=== PATIENT | female | born 1965 | race Caucasian/White ===

== ENCOUNTER 2016-11-01 12:42 | Emergency (ER) | payer OTHER ==
[~2016-11-01] VITALS: Ht 154.9 cm; Wt 117.9 kg
[~2016-11-01 12:42] MED LIST: ALPRAZOLAM0.5 MG PO; AUG500 PO; AZITHROMYCIN250 M1 PO; BACLOFEN10 MG PO; GUAIFENESI100 MG/52 PO; IBUPROFEN400 MG PO; LAC PO; LASIX20 MG PO; LEVOTHYROXINE0.05 M2 PO; LOPRESSOR50 MG PO; NOR10T PO; PROVENTIL0.09 MG/A1 INH; Prednisone PO; XAN5 PO; ZOCOR10 MG PO; ZOLOFT50 MG PO
[2016-11-01 13:17] LABS: BASOPHIL % 1.5 % (0-2); PLATELET COUNT 323 x10^3mcL (130-400); RED CELL DISTRIBUTION WIDTH 13.8 % (11.5-14.5)
[2016-11-01 13:33] LABS: CALCIUM 8.9 mg/dL (8.5-10.1); CARBON DIOXIDE 29.9 mmol/L (21-32); CHLORIDE SERUM 106 mmol/L (98-107); CREATININE SERUM 0.9 mg/dL (0.6-1.0); GFR1 > 60 mL/min; GLUCOSE SERUM 141 mg/dL (74-106); SODIUM SERUM 145 mmol/L (136-145)
[2016-11-01 13:38] LABS: ALBUMIN 3.8 g/dL (3.4-5.0); ALKALINE PHOSPHATASE 83 U/L (46-116); ALT/SGPT 29 U/L (14-59); AST/SGOT 23 U/L (15-37); BILIRUBIN TOTAL 0.6 mg/dL (0.20-1.00); CHOLESTEROL 195 mg/dL (<200); HDL CHOLESTEROL 23 mg/dL (40-60); PHOSPHOROUS 2.6 mg/dL (2.5-4.9); TOTAL PROTEIN, SERUM 7.3 g/dL (6.4-8.2); URIC ACID 5.7 mg/dL (2.6-6.0)
[2016-11-01 14:36] VITALS: BP 139/70
== END 2016-11-01 14:36 | disposition home or self-care (01) ==
LOC: ED 12:42
PROVIDERS: Emergency Medicine
DX: J45.901 Unspecified asthma with (acute) exacerbation (principal); I10 Essential (primary) hypertension; E07.9 Disorder of thyroid, unspecified
CPT/HCPCS: 83880; J7512; Q0092

== ENCOUNTER 2017-01-11 18:09 | Emergency (ER) | payer OTHER ==
[2017-01-11 21:22] VITALS: BP 145/87
== END 2017-01-11 21:22 | disposition home or self-care (01) ==
LOC: ED 18:09
DX: G89.29 Other chronic pain (principal); M54.9 Dorsalgia, unspecified; I10 Essential (primary) hypertension; J44.9 Chronic obstructive pulmonary disease, unspecified; J45.909 Unspecified asthma, uncomplicated
CPT/HCPCS: J1170; J1885; Q0162

== ENCOUNTER 2018-01-09 15:45 | Inpatient (IN) | payer OTHER ==
[~2018-01-09] VITALS: Ht 154.9 cm; Wt 133.0 kg
[2018-01-09 15:51] VITALS: Ht 154.9 cm; Wt 133.0 kg
[2018-01-09 18:01] LABS: microscopic required? NO
[2018-01-09 18:29] LABS: UA SPECIFIC GRAVITY 1.025 (1.005-1.035); urine erythrocyte NEGATIVE (NEGATIVE)
[2018-01-09 18:39] LABS: ALBUMIN 3.7 g/dL (3.4-5.0); ALKALINE PHOSPHATASE 82 U/L (46-116); ALT/SGPT 33 U/L (14-59); AMYLASE 27 U/L (25-115); AST/SGOT 43 U/L (15-37); BILIRUBIN TOTAL 0.4 mg/dL (0.20-1.00); CARBON DIOXIDE 23.7 mmol/L (21-32); CHLORIDE SERUM 103 mmol/L (98-107); CHOLESTEROL 146 mg/dL (<200); GLUCOSE SERUM 131 mg/dL (74-106); LIPASE 126 IU/L (73-393); SODIUM SERUM 140 mmol/L (136-145); TOTAL PROTEIN, SERUM 7.2 g/dL (6.4-8.2)
[2018-01-09 18:44] LABS: HDL CHOLESTEROL 21 mg/dL (40-60); T4(THYROXINE) 1.6 ug/dL (4.7-13.3)
[2018-01-09] MEDS ORDERED: LEVOXYL0.075 MG PO (18:49)
[2018-01-09] MEDS ORDERED: ROBAXIN500 MG PO (18:49)
[2018-01-09] MEDS ORDERED: LASIX20 MG PO (18:50)
[2018-01-09] MEDS ORDERED: TRAMADOL HCL50 MG PO (18:51)
[2018-01-09] MEDS ORDERED: NAPROXEN375 MG PO (18:52)
[2018-01-09] MEDS ORDERED: CLARITIN10 MG PO (18:53)
[2018-01-09] MEDS ORDERED: RANITIDINE HYD150 M2 PO (18:54)
[2018-01-09] MEDS ORDERED: XAN1 PO (18:54)
[2018-01-09 18:55] LABS: BASOPHIL % 0.3 % (0-2); PLATELET COUNT 167 x10^3mcL (130-400)
[2018-01-09 19:01] LABS: RED CELL DISTRIBUTION WIDTH 14.6 % (11.5-14.5)
[2018-01-09 19:02] LABS: CREATININE SERUM 0.7 mg/dL (0.6-1.0); GFR1 > 60 mL/min
[2018-01-09 19:07] LABS: AMPHETAMINE QUAL UR NONE DETECTED (See below)
[2018-01-09 20:03] LABS: MAGNESIUM 1.5 mg/dL (1.8-2.4); PHOSPHOROUS 2.7 mg/dL (2.5-4.9)
[2018-01-09 22:04] VITALS: BP 154/97
[2018-01-10 04:55] VITALS: BP 146/80
[2018-01-10 07:16] LABS: BASOPHIL % 1.2 % (0-2); PLATELET COUNT 272 x10^3mcL (130-400)
[2018-01-10 07:23] LABS: RED CELL DISTRIBUTION WIDTH 14.6 % (11.5-14.5)
[2018-01-10 07:26] LABS: CALCIUM 8.5 mg/dL (8.5-10.1); CARBON DIOXIDE 27.4 mmol/L (21-32); CHLORIDE SERUM 104 mmol/L (98-107); CREATININE SERUM 0.9 mg/dL (0.6-1.0); GFR1 > 60 mL/min; GLUCOSE SERUM 171 mg/dL (74-106); POTASSIUM SERUM 4.1 mmol/L (3.5-5.1); SODIUM SERUM 139 mmol/L (136-145)
[2018-01-10 09:16] VITALS: BP 146/73
[2018-01-10 13:43] VITALS: BP 150/85
[2018-01-10 17:45] VITALS: BP 142/74
[2018-01-10 17:50] VITALS: BP 156/80
[2018-01-10 20:58] VITALS: BP 156/84
[2018-01-11 05:29] VITALS: BP 133/65
[2018-01-11 07:32] LABS: BASOPHIL % 0.5 % (0-2); PLATELET COUNT 299 x10^3mcL (130-400)
[2018-01-11 07:33] LABS: RED CELL DISTRIBUTION WIDTH 14.8 % (11.5-14.5)
[2018-01-11 07:47] LABS: ALBUMIN 3.7 g/dL (3.4-5.0); ALKALINE PHOSPHATASE 70 U/L (46-116); ALT/SGPT 36 U/L (14-59); AST/SGOT 30 U/L (15-37); BILIRUBIN TOTAL 0.22 mg/dL (0.20-1.00); CALCIUM 8.8 mg/dL (8.5-10.1); CARBON DIOXIDE 25.8 mmol/L (21-32); CHLORIDE SERUM 104 mmol/L (98-107); CREATININE SERUM 0.9 mg/dL (0.6-1.0); GFR1 > 60 mL/min; GLUCOSE SERUM 145 mg/dL (74-106); LIPASE 103 IU/L (73-393); MAGNESIUM 2.1 mg/dL (1.8-2.4); PHOSPHOROUS 3.7 mg/dL (2.5-4.9); POTASSIUM SERUM 3.8 mmol/L (3.5-5.1); SODIUM SERUM 142 mmol/L (136-145); TOTAL PROTEIN, SERUM 7.2 g/dL (6.4-8.2)
[2018-01-11 07:53] LABS: AMYLASE 23 U/L (25-115)
[2018-01-11 08:55] VITALS: BP 128/65
[2018-01-11 12:54] VITALS: BP 141/69
[2018-01-11 16:41] VITALS: BP 156/82
[2018-01-11 21:06] VITALS: BP 143/82
[2018-01-12 05:38] VITALS: BP 139/82
[2018-01-12 06:31] LABS: BASOPHIL % 0.3 % (0-2); PLATELET COUNT 290 x10^3mcL (130-400); RED CELL DISTRIBUTION WIDTH 14.3 % (11.5-14.5)
[2018-01-12 06:49] LABS: CALCIUM 8.5 mg/dL (8.5-10.1); CARBON DIOXIDE 28.1 mmol/L (21-32); CHLORIDE SERUM 102 mmol/L (98-107); CREATININE SERUM 0.8 mg/dL (0.6-1.0); GFR1 > 60 mL/min; GLUCOSE SERUM 147 mg/dL (74-106); POTASSIUM SERUM 4.1 mmol/L (3.5-5.1); SODIUM SERUM 138 mmol/L (136-145)
[2018-01-12 09:00] VITALS: BP 153/84
[2018-01-12 12:52] VITALS: BP 104/80
[2018-01-12 16:47] VITALS: BP 146/66
[2018-01-12 20:37] VITALS: BP 177/86
[2018-01-13 05:44] VITALS: BP 176/97
[2018-01-13 06:30] VITALS: BP 151/83
[2018-01-13 06:45] LABS: BASOPHIL % 0.7 % (0-2); PLATELET COUNT 273 x10^3mcL (130-400); RED CELL DISTRIBUTION WIDTH 14.4 % (11.5-14.5)
[2018-01-13 06:52] LABS: CALCIUM 8.9 mg/dL (8.5-10.1); CARBON DIOXIDE 29.1 mmol/L (21-32); CHLORIDE SERUM 99 mmol/L (98-107); CREATININE SERUM 0.8 mg/dL (0.6-1.0); GFR1 > 60 mL/min; GLUCOSE SERUM 138 mg/dL (74-106); POTASSIUM SERUM 4.2 mmol/L (3.5-5.1); SODIUM SERUM 137 mmol/L (136-145)
[2018-01-13 09:00] VITALS: BP 143/87
[2018-01-13] MEDS ORDERED: MONTELUKAST SOD10 M1 PO (11:14)
[2018-01-13] MEDS ORDERED: ADV100/50 INH (11:14)
[2018-01-13] MEDS ORDERED: MEDROL4 MG PO (11:15)
[2018-01-13] MEDS ORDERED: ATIVAN1 MG PO (11:15)
[2018-01-13 12:05] VITALS: BP 143/87
[2018-01-13 14:00] VITALS: BP 146/82
== END 2018-01-13 14:40 | disposition home or self-care (01) | DRG 140 ==
LOC: ED 15:45 → DU 19:39
PROVIDERS: Emergency Medicine; Family Medicine
DX: J44.1 Chronic obstructive pulmonary disease with (acute) exacerbation (principal); J96.01 Acute respiratory failure with hypoxia; E66.01 Morbid (severe) obesity due to excess calories; E83.42 Hypomagnesemia; I10 Essential (primary) hypertension; E03.9 Hypothyroidism, unspecified; G47.33 Obstructive sleep apnea (adult) (pediatric); M79.7 Fibromyalgia; F41.9 Anxiety disorder, unspecified; K21.9 Gastro-esophageal reflux disease without esophagitis; F19.10 Other psychoactive substance abuse, uncomplicated; F17.210 Nicotine dependence, cigarettes, uncomplicated; Z68.43 Body mass index [BMI] 50.0-59.9, adult; Z91.19 Patient's noncompliance with other medical treatment and regimen; Z90.49 Acquired absence of other specified parts of digestive tract; Z98.891 History of uterine scar from previous surgery; I25.2 Old myocardial infarction; Z83.3 Family history of diabetes mellitus; Z80.9 Family history of malignant neoplasm, unspecified
CPT/HCPCS: 83880; 97110-GP; 97116-GP; 97530-GP; 97535-GP; 99406; J1644; J1885; J1956; J2920; J2930; J3475; J3535; J7030; J7613; J7620; J7626; Q0092

== ENCOUNTER 2018-05-08 13:36 | Inpatient (IN) | payer OTHER ==
[~2018-05-08] VITALS: Ht 154.9 cm; Wt 130.8 kg
[~2018-05-08 13:36] MED LIST changes: +ADV100/50 INH; +ATIVAN1 MG PO; +CLARITIN10 MG PO; +LEVOXYL0.075 MG PO; +MEDROL4 MG PO; +MONTELUKAST SOD10 M1 PO; +NAPROXEN375 MG PO; +RANITIDINE HYD150 M2 PO; +ROBAXIN500 MG PO; +TRAMADOL HCL50 MG PO; +XAN1 PO
[2018-05-08 13:44] VITALS: Ht 154.9 cm; Wt 130.8 kg
[2018-05-08 14:31] LABS: PLATELET COUNT 296 x10^3mcL (130-400); RED CELL DISTRIBUTION WIDTH 14.4 % (11.5-14.5)
[2018-05-08 14:53] LABS: CALCIUM 8.2 mg/dL (8.5-10.1); CARBON DIOXIDE 32.5 mmol/L (21-32); CHLORIDE SERUM 102 mmol/L (98-107); CREATININE SERUM 0.9 mg/dL (0.6-1.0); GFR1 > 60 mL/min; GLUCOSE SERUM 126 mg/dL (74-106); POTASSIUM SERUM 4.6 mmol/L (3.5-5.1); SODIUM SERUM 140 mmol/L (136-145)
[2018-05-08 14:58] LABS: ALBUMIN 3.6 g/dL (3.4-5.0); ALKALINE PHOSPHATASE 116 U/L (46-116); ALT/SGPT 40 U/L (14-59); AST/SGOT 39 U/L (15-37); BILIRUBIN TOTAL 0.3 mg/dL (0.20-1.00); CHOLESTEROL 167 mg/dL (<200); PHOSPHOROUS 5.2 mg/dL (2.5-4.9)
[2018-05-08 15:00] LABS: HDL CHOLESTEROL 16 mg/dL (40-60)
[2018-05-08 15:11] LABS: BAND NEUTROPHIL 12 % (0-10); BASOPHIL 0 % (0-2); METAMYELOCTE 1 % (0-2); MONOCYTE 3 % (0-7); SEGMENTED NEUTROPHILS 69 % (37-75)
[2018-05-08 15:12] LABS: PLATELET MORPHOLOGY PLATELETS NORMAL; rbc morphology (normal/abnorm) NORMAL (NORMAL)
[2018-05-08] MEDS ORDERED: CEPHALEXIN500 MG PO (17:12)
[2018-05-08] MEDS ORDERED: GABAPENTIN600 M1 PO (17:12)
[2018-05-08] MEDS ORDERED: CLARITIN10 MG PO (17:13)
[2018-05-08] MEDS ORDERED: NAPROXEN375 MG PO (17:14)
[2018-05-08] MEDS ORDERED: VITAMIN D50000 I4 PO (17:16)
[2018-05-08 17:49] LABS: CHOLESTEROL/HDL RATIO 7.8
[2018-05-08] MEDS ORDERED: ULTRAM50 MG PO (18:09)
[2018-05-08 18:22] VITALS: BP 143/85
[2018-05-08] MEDS ORDERED: NORCO1 TA2 PO (18:26)
[2018-05-08 20:51] VITALS: BP 132/95
[2018-05-08 21:19] LABS: T3 TOTAL 1.2 ng/mL
[2018-05-08 21:20] LABS: FREE T4 1.05 ng/dL (0.76-1.46); T4(THYROXINE) 8.5 ug/dL (4.7-13.3)
[2018-05-09 02:54] LABS: UA SPECIFIC GRAVITY >=1.030 (1.005-1.035); microscopic required? YES; urine erythrocyte NEGATIVE (NEGATIVE)
[2018-05-09 03:06] LABS: AMPHETAMINE QUAL UR NONE DETECTED (See below)
[2018-05-09 04:25] VITALS: BP 150/82
[2018-05-09 08:12] VITALS: BP 145/86
[2018-05-09 08:21] LABS: CALCIUM 8.2 mg/dL (8.5-10.1); CARBON DIOXIDE 32.9 mmol/L (21-32); CHLORIDE SERUM 103 mmol/L (98-107); CREATININE SERUM 0.8 mg/dL (0.6-1.0); GFR1 > 60 mL/min; GLUCOSE SERUM 121 mg/dL (74-106); PHOSPHOROUS 3.1 mg/dL (2.5-4.9); POTASSIUM SERUM 4.1 mmol/L (3.5-5.1); SODIUM SERUM 139 mmol/L (136-145)
[2018-05-09 08:22] LABS: BASOPHIL % 1.2 % (0-2); PLATELET COUNT 258 x10^3mcL (130-400); RED CELL DISTRIBUTION WIDTH 14.4 % (11.5-14.5)
[2018-05-09 12:41] VITALS: BP 133/71
[2018-05-09 16:30] VITALS: BP 133/80
[2018-05-09 20:58] VITALS: BP 148/68
[2018-05-10 05:30] VITALS: BP 136/62
[2018-05-10 07:16] LABS: BASOPHIL % 1.3 % (0-2); PLATELET COUNT 268 x10^3mcL (130-400); RED CELL DISTRIBUTION WIDTH 14.1 % (11.5-14.5)
[2018-05-10 07:34] LABS: CALCIUM 8.9 mg/dL (8.5-10.1); CARBON DIOXIDE 30.4 mmol/L (21-32); CHLORIDE SERUM 103 mmol/L (98-107); CREATININE SERUM 0.7 mg/dL (0.6-1.0); GFR1 > 60 mL/min; GLUCOSE SERUM 148 mg/dL (74-106); MAGNESIUM 2.1 mg/dL (1.8-2.4); PHOSPHOROUS 2.6 mg/dL (2.5-4.9); POTASSIUM SERUM 3.9 mmol/L (3.5-5.1); SODIUM SERUM 140 mmol/L (136-145)
[2018-05-10 07:50] VITALS: BP 116/88; BP 128/92
[2018-05-10 08:30] VITALS: BP 128/92
[2018-05-10] MEDS ORDERED: AUGMENTIN 875-1 EACH PO (12:19)
[2018-05-10] MEDS ORDERED: ADA30 PO (12:19)
[2018-05-10] MEDS ORDERED: PREDNISONE20 MG PO ×2 (12:19→12:20)
[2018-05-10] MEDS ORDERED: PREDNISONE10 MG PO (12:20)
[2018-05-10] MEDS ORDERED: LEVOFLOXACIN750 M1 PO (12:21)
== END 2018-05-10 12:53 | disposition home or self-care (01) | DRG 812 ==
LOC: ED 13:36 → MU 16:35 → DU 16:35 → MU 18:05 → DU 18:15
PROVIDERS: Emergency Medicine; Family Medicine
PROC: 5A09357 Assistance with Respiratory Ventilation, Less than 24 Consecutive Hours, Continuous Positive Airway Pressure (ICD-10-PCS; principal; 2018-05-10)
DX: T40.7X4A Poisoning by cannabis (derivatives), undetermined, initial encounter (principal); J96.01 Acute respiratory failure with hypoxia; G92 Toxic encephalopathy; E66.01 Morbid (severe) obesity due to excess calories; E83.42 Hypomagnesemia; M79.7 Fibromyalgia; I10 Essential (primary) hypertension; E03.9 Hypothyroidism, unspecified; K21.9 Gastro-esophageal reflux disease without esophagitis; G47.33 Obstructive sleep apnea (adult) (pediatric); K02.9 Dental caries, unspecified; F17.210 Nicotine dependence, cigarettes, uncomplicated; F10.10 Alcohol abuse, uncomplicated; Y90.0 Blood alcohol level of less than 20 mg/100 ml; G89.29 Other chronic pain; F32.9 Major depressive disorder, single episode, unspecified; J44.1 Chronic obstructive pulmonary disease with (acute) exacerbation; T38.0X5A Adverse effect of glucocorticoids and synthetic analogues, initial encounter; Z71.6 Tobacco abuse counseling; I25.2 Old myocardial infarction; Z68.43 Body mass index [BMI] 50.0-59.9, adult; Z90.49 Acquired absence of other specified parts of digestive tract; Z83.3 Family history of diabetes mellitus; Z80.9 Family history of malignant neoplasm, unspecified; Y92.89 Other specified places as the place of occurrence of the external cause; Z23 Encounter for immunization
CPT/HCPCS: 36600; 82375; 83880; 84439; 90658; 99406; G0480; J1644; J1956; J2060; J2270; J2920; J2930; J7030; J7040; J7613; J7620; Q0092

== ENCOUNTER 2018-08-02 15:09 | Inpatient (IN) | payer OTHER ==
[~2018-08-02] VITALS: Ht 154.9 cm; Wt 127.0 kg
[~2018-08-02 15:09] MED LIST changes: +ADA30 PO; +AUGMENTIN 875-1 EACH PO; +CEPHALEXIN500 MG PO; +GABAPENTIN600 M1 PO; +LEVOFLOXACIN750 M1 PO; +NORCO1 TA2 PO; +PREDNISONE10 MG PO; +PREDNISONE20 MG PO; +ULTRAM50 MG PO; +VITAMIN D50000 I4 PO
[2018-08-02 15:30] VITALS: Ht 154.9 cm; Wt 127.0 kg
[2018-08-02 16:38] LABS: BASOPHIL % 0.2 % (0-2); PLATELET COUNT 278 x10^3mcL (130-400)
[2018-08-02 16:41] LABS: RED CELL DISTRIBUTION WIDTH 15.4 % (11.5-14.5)
[2018-08-02 16:46] LABS: AMPHETAMINE QUAL UR NONE DETECTED (See below)
[2018-08-02 16:46] LABS: CALCIUM 8.4 mg/dL (8.5-10.1); CARBON DIOXIDE 29.3 mmol/L (21-32); CHLORIDE SERUM 102 mmol/L (98-107); CREATININE SERUM 1.2 mg/dL (0.6-1.0); GFR1 51 mL/min; GLUCOSE SERUM 126 mg/dL (74-106); POTASSIUM SERUM 4.6 mmol/L (3.5-5.1); SODIUM SERUM 139 mmol/L (136-145)
[2018-08-02 16:51] LABS: ALBUMIN 4.1 g/dL (3.4-5.0); ALKALINE PHOSPHATASE 92 U/L (46-116); ALT/SGPT 32 U/L (14-59); AST/SGOT 31 U/L (15-37); BILIRUBIN TOTAL 0.46 mg/dL (0.20-1.00); CHOLESTEROL 164 mg/dL (<200); TOTAL PROTEIN, SERUM 7.7 g/dL (6.4-8.2)
[2018-08-02] MEDS ORDERED: CELEXA10 MG (18:01)
[2018-08-02] MEDS ORDERED: KLONOPIN1 MG PO (18:02)
[2018-08-02] MEDS ORDERED: RANITIDINE HCL150 M1 (18:02)
[2018-08-02] MEDS ORDERED: REQUIP0.5 MG (18:06)
[2018-08-02] MEDS ORDERED: ROBAXIN500 MG (18:07)
[2018-08-02] MEDS ORDERED: NOR10T (18:08)
[2018-08-02] MEDS ORDERED: SIMVASTATIN10 M1 (18:08)
[2018-08-02] MEDS ORDERED: METOPROLOL SUCC50 M2 (18:08)
[2018-08-02 18:58] LABS: MAGNESIUM 1.9 mg/dL (1.8-2.4); PHOSPHOROUS 5.3 mg/dL (2.5-4.9)
[2018-08-02 19:03] LABS: CHOLESTEROL/HDL RATIO 7.6
[2018-08-02 19:04] LABS: FREE T4 0.96 ng/dL (0.76-1.46); FREE THYROXINE INDEX 2.8 ug/dL (1.4-4.5); T4(THYROXINE) 9.2 ug/dL (4.7-13.3)
[2018-08-02 19:05] LABS: T3 TOTAL 1.33 ng/mL
[2018-08-02 20:39] VITALS: BP 146/68
[2018-08-03 05:30] VITALS: BP 149/77
[2018-08-03 06:41] LABS: PLATELET COUNT 261 x10^3mcL (130-400); RED CELL DISTRIBUTION WIDTH 15.6 % (11.5-14.5)
[2018-08-03 06:59] LABS: CALCIUM 8.4 mg/dL (8.5-10.1); CARBON DIOXIDE 28.5 mmol/L (21-32); CHLORIDE SERUM 102 mmol/L (98-107); CREATININE SERUM 0.9 mg/dL (0.6-1.0); GFR1 > 60 mL/min; GLUCOSE SERUM 166 mg/dL (74-106); MAGNESIUM 1.8 mg/dL (1.8-2.4); PHOSPHOROUS 2.2 mg/dL (2.5-4.9); POTASSIUM SERUM 4.1 mmol/L (3.5-5.1); SODIUM SERUM 138 mmol/L (136-145)
[2018-08-03 07:49] VITALS: BP 116/46
[2018-08-03 09:23] LABS: microscopic required? YES; urine erythrocyte TRACE (NEGATIVE)
[2018-08-03 18:00] VITALS: BP 125/57
[2018-08-03 20:39] VITALS: BP 117/49
[2018-08-04 05:54] VITALS: BP 121/49
[2018-08-04 06:54] LABS: BASOPHIL % 0.1 % (0-2); PLATELET COUNT 302 x10^3mcL (130-400)
[2018-08-04 06:58] LABS: RED CELL DISTRIBUTION WIDTH 15.1 % (11.5-14.5)
[2018-08-04 07:29] LABS: CALCIUM 8.8 mg/dL (8.5-10.1); CARBON DIOXIDE 28.3 mmol/L (21-32); CHLORIDE SERUM 103 mmol/L (98-107); CREATININE SERUM 0.8 mg/dL (0.6-1.0); GFR1 > 60 mL/min; GLUCOSE SERUM 176 mg/dL (74-106); PHOSPHOROUS 2.6 mg/dL (2.5-4.9); POTASSIUM SERUM 3.8 mmol/L (3.5-5.1); SODIUM SERUM 141 mmol/L (136-145)
[2018-08-04 08:51] VITALS: BP 128/65
[2018-08-04 08:53] VITALS: BP 128/65
[2018-08-04] MEDS ORDERED: PRE20 PO (10:26)
[2018-08-04 11:20] VITALS: BP 128/65
== END 2018-08-04 14:35 | disposition home or self-care (01) | DRG 812 ==
LOC: ED 15:09 → DU 17:49
PROVIDERS: Emergency Medicine; ADMIT Family Medicine
DX: T42.4X1A Poisoning by benzodiazepines, accidental (unintentional), initial encounter (principal); J96.21 Acute and chronic respiratory failure with hypoxia; N17.0 Acute kidney failure with tubular necrosis; G92 Toxic encephalopathy; T40.601A Poisoning by unspecified narcotics, accidental (unintentional), initial encounter; T47.8X1A Poisoning by other agents primarily affecting gastrointestinal system, accidental (unintentional), initial encounter; Y92.89 Other specified places as the place of occurrence of the external cause; E66.2 Morbid (severe) obesity with alveolar hypoventilation; E83.51 Hypocalcemia; F41.9 Anxiety disorder, unspecified; K21.9 Gastro-esophageal reflux disease without esophagitis; M79.7 Fibromyalgia; J96.22 Acute and chronic respiratory failure with hypercapnia; E78.1 Pure hyperglyceridemia; F32.9 Major depressive disorder, single episode, unspecified; F17.210 Nicotine dependence, cigarettes, uncomplicated; J44.1 Chronic obstructive pulmonary disease with (acute) exacerbation; E83.39 Other disorders of phosphorus metabolism; I10 Essential (primary) hypertension; I25.2 Old myocardial infarction; Z90.49 Acquired absence of other specified parts of digestive tract; Z98.891 History of uterine scar from previous surgery; Z83.3 Family history of diabetes mellitus; Z80.9 Family history of malignant neoplasm, unspecified; Z68.43 Body mass index [BMI] 50.0-59.9, adult
CPT/HCPCS: 36600; 83880; 84439; 87804; C9113; G0480; J1885; J1956; J2310; J2920; J3490; J7050; J7620; Q0092

== ENCOUNTER 2019-06-09 22:52 | Inpatient (IN) | payer OTHER ==
[~2019-06-09] VITALS: Ht 154.9 cm; Wt 122.6 kg
[~2019-06-09 22:52] MED LIST changes: +CELEXA10 MG PO; +KLONOPIN1 MG PO; +METOPROLOL SUCC50 M2; +NOR10T; +PRE20 PO; +RANITIDINE HCL150 M1; +REQUIP0.5 MG; +SIMVASTATIN10 M1
[2019-06-09 23:02] VITALS: Ht 154.9 cm; Wt 122.6 kg
--- NOTE | 2019-06-09 23:09 | NUR ---
PT CAME TO ED CO SOB PT STS SHE HAS RAN OUT OF ANXIETY MEDICATION THE LAST 5 DAYS. PT STS SHE HAS HAD SEVERAL ANNIVERSERY OF MANY OF HER FAMILY MEMBERS . PT STS SHE FAMILY MEMBERS IN THE HOUSE ARE SICK. PT STS SHE HAS INCREASED HER SMOKING BECAUSE OF HER STRESS. PT IS DIMINISHED BILATERALLY. PT WAS GIVEN NITRO IN ROUTE. PT DOES USE IN HOME BREATHING TREATMENTS, LAST TREATMENT WAS THIS MORNING, PT STS SHE DOESN'T THINK ITS WORKING CORRECTLY. PT STS SHE IS FEELING MUCH BE THAN BEFORE SHE CAME IN. PT TALKING IN COMPLETE SENTENCES. VSS. NO S/S OF DISTRESS. RESP E/U. DR. MORFIN COMPLETED MSE. WILL CONTINUE TO MONITOR.
[2019-06-09 23:36] LABS: BASOPHIL % 1.2 % (0-2); PLATELET COUNT 247 x10^3mcL (130-400); RED CELL DISTRIBUTION WIDTH 14.1 % (11.5-14.5)
--- NOTE | 2019-06-09 23:40 | NUR ---
ATTEMPTED ABG WITHOUT SUCCESS. DR MORFIN MADE AWARE.
[2019-06-09 23:47] LABS: CALCIUM 8.9 mg/dL (8.5-10.1); CARBON DIOXIDE 27.1 mmol/L (21-32); CHLORIDE SERUM 103 mmol/L (98-107); CREATININE SERUM 0.8 mg/dL (0.6-1.0); GFR1 > 60 mL/min; GLUCOSE SERUM 115 mg/dL (74-106); POTASSIUM SERUM 3.3 mmol/L (3.5-5.1); SODIUM SERUM 141 mmol/L (136-145)
[2019-06-10] VITALS (8 sets, daily range): BP systolic 122–150; BP diastolic 49–78
[2019-06-10 00:07] LABS: ALBUMIN 4.1 g/dL (3.4-5.0); ALKALINE PHOSPHATASE 73 U/L (46-116); ALT/SGPT 33 U/L (14-59); AST/SGOT 28 U/L (15-37); BILIRUBIN TOTAL 0.5 mg/dL (0.20-1.00); TOTAL PROTEIN, SERUM 7.4 g/dL (6.4-8.2)
--- NOTE | 2019-06-10 00:14 | NUR ---
PT STS SHE IS CURRENTLY FEELING PRESSURE PAIN AT THIS TIME. BLOOD PRESSURE SLIGHTLY INCREASE. DR. MORFIN MADE AWARE.
--- NOTE | 2019-06-10 00:44 | NUR ---
RESP AT BEDSIDE.
--- NOTE | 2019-06-10 00:56 | NUR ---
REASSESSED PT, STS THAT AFTER BREATHING TREATMENT SHE IS NO LONG FEELING CHEST TIGHTNESS. WILL CONTINUE TO MONITOR.
[2019-06-10] MEDS ORDERED: LEXAPRO20 MG PO (02:02)
[2019-06-10] MEDS ORDERED: FERROUS SULFAT325 M2 PO (02:02)
[2019-06-10] MEDS ORDERED: NOR10 PO (02:02)
[2019-06-10] MEDS ORDERED: PRAVACHOL20 MG PO (02:03)
[2019-06-10] MEDS ORDERED: K10 PO (02:03)
--- NOTE | 2019-06-10 02:21 | NUR ---
REPORT GIVEN TO BELLA WOLF TO ASSUME CARE OF PT.
--- NOTE | 2019-06-10 02:48 | NUR ---
PT RECEIVED FROM ED VIA GURNEY ACCOMPANIED BY NURSE. PT A/O X4, ABLE TO MAKE NEEDS KNOWN, DENIES ANY H/A OR DIZZINESS. TELE #30, NSR, HR-86, PT DENIES HAVING ANY CP/PRESSURE. PULSES PALPABLE, TRACE EDEMA TO BLE. LUNG SOUNDS DIM TO [place]OL[place] BASES, BREATHING IS EVEN AND UNLABORED ON 2L NC, PT DENIES SOB, NO RESP DISTRESS NOTED. ABD SOFT AND ROUND, DENIES N/V. VOIDS FREELY, BRP. AMBULATORY WITH STEADY GAIT, PT REPORTS USING WALKER AT BASELINE. SKIN IS WARM AND DRY, INTACT. PT DENIES HAVING ANY PAIN AT THIS TIME. SL TO RH, PATENT AND INTACT. NO ACUTE DISTRESS NOTED. ORIENTED PT TO CALL LIGHT. BED IN LOWEST SETTING, SIDE RAILS UP X2, CALL LIGHT WITHIN REACH. WILL CONT TO MONITOR.
--- NOTE | 2019-06-10 02:58 | NUR ---
PT TRANSFERRED TO TELE FLOOR ACCOMPANIED BY NURSE AND EMT. NO S/S OF DISTRESS. RESP E/U. PT CONNECTED TO MONITOR. DURING TRANSFER. IV SITE PATENT, NO S/S OF INFILTRATION. RN AT BEDSIDE TO ASSUME CARE.
--- NOTE | 2019-06-10 04:10 | NUR ---
ELLIS CHIN CALLED AND DR ELLIOTT PAGED FOR ORDERS. CALLBACK NUMBER LEFT WITH LOKIE DRIVER. AWAITING CALLBACK AT THIS TIME.
--- NOTE | 2019-06-10 04:37 | NUR ---
CALLED [facility] FOR ORDERS. SPOKE WITH DR ELLIOTT AND UPDATED PHYSICIAN WITH PT'S STATUS. PT C/O 01/08 CP, DR ELLIOTT AWARE. PT ALSO REQUESTING ANXIETY MEDICATION, PER DR ELLIOTT, NO ANXIETY MED AT THIS TIME D/T PT COMING IN FOR COPD EXACERBATION. ORDERS RECEIVED, WILL CARRY OUT ORDERS.
--- NOTE | 2019-06-10 04:58 | NUR ---
PT C/O 7/10 CP, PRN TORADOL IVP GIVEN ORDERED. NO ACUTE DISTRESS NOTED. WILL CONT TO MONITOR.
--- NOTE | 2019-06-10 06:31 | NUR ---
PT SLEPT AT INTERVALS THROUGHOUT THE EVENING. BREATHING IS EVEN AND UNLABORED ON 2L NC, NO RESP DISTRESS NOTED. PT REPORTS GOOD PAIN RELEIF FROM PRN TORADOL. SL TO RH, INTACT. NO ACUTE CHANGES ENCOUNTERED DURING SHIFT. ALL NEEDS MET AND ANTICIPATED. CALL LIGHT WITHIN REACH. WILL ENDORSE CARE TO AM NURSE.
[2019-06-10 06:41] LABS: BASOPHIL % 0.5 % (0-2); PLATELET COUNT 242 x10^3mcL (130-400); RED CELL DISTRIBUTION WIDTH 13.9 % (11.5-14.5)
[2019-06-10 06:45] LABS: CALCIUM 9.1 mg/dL (8.5-10.1); CARBON DIOXIDE 24.2 mmol/L (21-32); CHLORIDE SERUM 100 mmol/L (98-107); CREATININE SERUM 0.9 mg/dL (0.6-1.0); GFR1 > 60 mL/min; GLUCOSE SERUM 152 mg/dL (74-106); POTASSIUM SERUM 3.9 mmol/L (3.5-5.1); SODIUM SERUM 136 mmol/L (136-145)
--- NOTE | 2019-06-10 07:25 | NUR ---
SEEN AOX4, NOT IN DISTRESS, NO SUBJECTIVE COMPLAINTS, TELE 30 NSR, PALPABLE PULSES, TRACE BLE, DIMINISHED LUNG BASES, O2 AT 2LPM VIA NC, + BS, LAST BM 06/09/19, VOIDS WITH NO DYSURIA, GENERALIZED WEAKNESS, SKIN INTACT, AMBULATORY, NO PAIN AT THIS TIME. CALL LIGHT WITHIN REACH . BED AT LOWEST POSITION.
--- NOTE | 2019-06-10 10:16 | NUR ---
PATIENT COMPLAINED OF PAIN ON IV RH DURING FLUSHING. IV DISCONTINUED. IV RESTARTED AT . NO REDNESS OR INFILTRATION. IV INTACT AND PATENT. RESTARTED IVPB MEDICATION, AZITHROMAX. CALL LIGHT WITHIN REACH. BED AT LOWEST POSITION.
--- NOTE | 2019-06-10 10:30 | NUR ---
PATIENT STILL COMPLAINED OF PAIN AT RH IV SITE ASSOCIATED WITH BURNING SENSATION. IV STOPPED AND DISCONNECTED. PAGED DR. SHIELDS.
--- NOTE | 2019-06-10 11:12 | NUR ---
RECEIVED CALL FROM DR SHIELDS. REPORTED AZITHROMYCIN IVPB REACTION. PATIENT VERBALIZED NO REACTION TO PO MEDICATION. PER DR. SHIELDS, CHANGE TO PO MEDICATION. PER DR. MURRIETA PATIENT TO START ANTIHYPERTENSIVE MEDICATION FROM HER HOME MEDICATION.
[2019-06-10] MEDS ORDERED: METOPROLOL TART50 MG PO (12:22)
--- NOTE | 2019-06-10 17:17 | NUR ---
SEEN AOX4, C/O RETROORBITAL PAIN AND NECK PAIN. BP 133/78. TORADOL IVP GIVEN. PAIN SCALE OF 8/10. O2 AT 2 LPM VIA NC. TELE 30 NSR 87. DIMINISHED BLF, REGULAR RATE AND RHYTHM, TRACE BLE. NO ABDOMINAL COMPLAINTS. VOIDED 2X WITH NO DYSURIA, LAST BM 06/10/19. IV INTACT AND PATENT . NO REDNESS OR INFILTRATION. CALL LIGHT WITHIN REACH. BED AT LOWEST POSITION.
--- NOTE | 2019-06-10 19:20 | NUR ---
PT RECEIVED A/O X4, ABLE TO MAKE NEEDS KNOWN. TELE #30, NSR, PT DENIES HAVING ANY CP/PRESSURE. PULSES PALPABLE, TRACE EDEMA TO BLE. LUNG SOUNDS DIM TO KOLTON BASES, BREATHING IS EVEN AND UNLABORED ON 2L NC, PT DENIES SOB, NO RESP DISTRESS NOTED. ABD SOFT AND ROUND, DENIES N/V. VOIDS FREELY, BRP. AMBULATORY WITH STEADY GAIT, PT USES WALKER AT BASELINE. SKIN IS WARM AND DRY, INTACT. PT DENIES HAVING ANY PAIN AT THIS TIME. SL TO RH, PATENT AND INTACT. NO ACUTE DISTRESS NOTED. ORIENTED PT TO CALL LIGHT. BED IN LOWEST SETTING, SIDE RAILS UP X2, CALL LIGHT WITHIN REACH. WILL CONT TO MONITOR.
--- NOTE | 2019-06-10 19:35 | NUR ---
DR SHIELDS AT BEDSIDE DISCUSSING PLAN OF CARE WITH PT. ORDERS RECEIVED. PER DR SHIELDS, PT DOES NOT NEED 02 NC. PT PLACED ON NC, 02 SAT-96% ON RA, NO RESP DISTRESS NOTED. WILL CONT TO MONITOR.
--- NOTE | 2019-06-10 21:47 | NUR ---
PT C/O 5/10 BACK PAIN, PRN TYLENOL GIVEN ORDERED. NO ACUTE DISTRESS NOTED. WILL CONT TO MONITOR.
--- NOTE | 2019-06-10 22:51 | NUR ---
PT C/O 01/08 BACK PAIN, PRN TORADOL GIVEN ORDERED. NO ACUTE DISTRESS NOTED. WILL CONT TO MONITOR.
--- NOTE | 2019-06-11 01:53 | NUR ---
PT C/O FEELING ANXIOUS. PT STATES, "THIS IS AROUND THE SAME TIME A LOT OF MY FAMILY MEMBERS PASSED." PRN XANAX GIVEN ORDERED. NO ACUTE DISTRESS OBSERVED. WILL CONT TO MONITOR.
[2019-06-11 05:17] VITALS: BP 146/68
--- NOTE | 2019-06-11 08:00 | NUR ---
SHIFT ASSESSMENT DONE. PATIENT A/A/OX4; CLEAR SPEECH. TELE#30; SR; HR =82. NO RESP DISTRESS, O2 SAT 96% ON RA. IVHL'D TO L HAND. FINISHED 80% OF REGULAR DIET BREAKFAST. NO N/V. OBESITY. STATED HAD WALKER AT HOME. C/O RT CHEST PAIN ON 11/08 AND ANXIETY. TORADOL AND ANTI- ANXIETY MEDS WOULD BE GIVEN PER ORDER. CALL LIGHT IN REACH.
[2019-06-11 08:41] VITALS: BP 131/74
[2019-06-11 12:05] VITALS: BP 131/74
[2019-06-11 13:10] VITALS: BP 146/77
--- NOTE | 2019-06-11 14:00 | NUR ---
DR. SHIELDS SAW PATIENT. D/C TO HOME PER ORDER. INSTRUCTION GIVEN. IV D/C'D. CONDITION STABLE.
== END 2019-06-11 14:20 | disposition home or self-care (01) | DRG 140 ==
LOC: ED 22:52 → DU 06-10 01:49
PROVIDERS: Emergency Medicine; ADMIT Internal Medicine
DX: J44.1 Chronic obstructive pulmonary disease with (acute) exacerbation (principal); E66.01 Morbid (severe) obesity due to excess calories; F17.210 Nicotine dependence, cigarettes, uncomplicated; K21.9 Gastro-esophageal reflux disease without esophagitis; M79.7 Fibromyalgia; K58.9 Irritable bowel syndrome, unspecified; Z68.32 Body mass index [BMI] 32.0-32.9, adult; Z71.3 Dietary counseling and surveillance; F41.9 Anxiety disorder, unspecified; I25.2 Old myocardial infarction; Z90.49 Acquired absence of other specified parts of digestive tract; E78.5 Hyperlipidemia, unspecified; E03.9 Hypothyroidism, unspecified; M54.9 Dorsalgia, unspecified; G89.29 Other chronic pain
CPT/HCPCS: 83880; 99406; G0378; J0456; J1650; J1885; J2920; J2930; J7030; J7512; J7613; J7620; J7626; Q0092

== ENCOUNTER 2020-08-02 17:01 | Inpatient (IN) | payer OTHER, SELFPAY ==
[~2020-08-02] VITALS: Ht 154.9 cm; Wt 120.5 kg
[~2020-08-02 17:01] MED LIST changes: +FERROUS SULFAT325 M2 PO; +K10 PO; +LEXAPRO20 MG PO; +METOPROLOL TART50 MG PO; +NOR10 PO; +PRAVACHOL20 MG PO; -ULTRAM50 MG PO; -XAN1 PO
[2020-08-02 17:13] VITALS: Ht 154.9 cm; Wt 120.5 kg
[2020-08-02 18:05] LABS: BASOPHIL % 0.7 % (0.2-1.3); PLATELET COUNT 257 x10^3mcL (179-408); RED CELL DISTRIBUTION WIDTH 13.7 % (12.3-17.7)
--- NOTE | 2020-08-02 18:21 | NUR ---
REC'D A 54/F IN TENT 1 WITH C/O COVID SYMPTOMS, SOB X 3 WKS. PT REPORTS COUGH, FEVER/CHILLS, HEADACHE, SORE THROAT, FATIGUE, BODYACHE, NEW LOSS OF TASTE AND SMELL, DIARRHEA, N/V AND RUNNY NOSE. PT DENIES SICK CONTACT. PT AAOX4, CLEAR SPEECH, RESP EVEN AND LABORED, O2: 88% RA, IN MILD DISTRESS.
[2020-08-02 18:22] LABS: CALCIUM 8.3 mg/dL (8.5-10.1); CARBON DIOXIDE 25.7 mmol/L (21-32); CREATININE SERUM 1.4 mg/dL (0.6-1.0); POTASSIUM SERUM 3.8 mmol/L (3.5-5.1)
[2020-08-02 18:26] LABS: BILIRUBIN TOTAL 0.6 mg/dL (0.20-1.00); TOTAL PROTEIN, SERUM 7.6 g/dL (6.4-8.2)
[2020-08-02 18:27] LABS: ALBUMIN 3.1 g/dL (3.4-5.0)
[2020-08-02 18:34] LABS: C REACTIVE PROTEIN 25.7 mg/dL (<=0.9)
--- NOTE | 2020-08-02 19:21 | NUR ---
ASSUME PT CARE, PT WAS PREVIOUSLY AWAITING IN [facility]. PT IS A&OX4, SPEAKING IN CLEAR FULL SENTENCES, PT IS ON 3L OF O2 VIA NC, ON FULL CM WITH NSR NOTED, LUNGS ARE DIMINSHED AND RESPS E/U. PT IS AFEBRILE AT THIS TIME BUT IS DIAPHORETIC. PT HAS SWELLING TO BLE BUT STATES THAT IS NORMAL FOR HER DUE TO CHF. IV TO R HAND IS PATENT, NO INFILTRATION NOTED. NAD AT THIS TIME WILL CONT TO MONITOR.
[2020-08-02] MEDS ORDERED: ZESTRIL40 MG PO (19:30)
--- NOTE | 2020-08-02 20:21 | NUR ---
INFORMED BY PT IV TO R HAND "CAME OUT". ENTERED ROOM AND PT WAS HOLDING 22G IV ANGIOCATH IN HAND. BLEEDING CONTROLLED. IV ANGIOCATH INTACT. NEW IV ESTABLISHED 22G TO L HAND, FLUSHED WITH 10CC NS AND NO COMPLICATIONS. PRIMARY RN ANSHU MADE AWARE
--- NOTE | 2020-08-02 20:23 | NUR ---
ICE PACK APPLIED TO R HAND FOR INFILTRATION
--- NOTE | 2020-08-02 21:05 | NUR ---
PT'S IV REMOVED WHEN PT WAS ATTEMPTING TO PUT GOWN ON BY HERSELF. BLEEDING IS CONTROLLED AT THIS TIME.
[2020-08-02 21:44] LABS: UA SPECIFIC GRAVITY >=1.030 (1.005-1.035); microscopic required? YES; urine erythrocyte 3+ (NEGATIVE)
--- NOTE | 2020-08-02 21:45 | NUR ---
REPORT GIVEN TO ANN BLANCO TO ASSUME PT CARE.
--- NOTE | 2020-08-02 22:30 | NUR ---
RECEIVED PT FROM ER VIA [facility]. PT SLEEPING/LETHARGIC, A/OX4. ABLE TO MAKE NEEDS KNOWN. SPEECH CLEAR. PT DENIES CARIAS/DIZZINESS. ON TELE#48 READING NSR, PT DENIES CHEST PAIN OR PRESSURE. PULSES TO BUE MOD/BLE WEAK. EDEMA TO BLE 2+. LUNG SOUNDS DIMINISHED AND INSPIRATORY/EXPIRATORY WHEEZING NOTED. RR EVEN AND LABORED ON 3L NC, SATURATION 96%. PT DIAPHORETIC. PT HAD BM ON 08/02/20, LOOSE. BOWEL SOUNDS ACTIVE. ABD SOFT ROUND NONDISTENDED. VOIDS FREELY. GENERALIZED WEAKNESS NOTED. SKIN INTACT. NO C/O PAIN OR DISCOMFORT. IV TO L HAND, SALINE LOCKED PATENT AND INTACT, FLUSHES WELL. EDUCATED PT CONSTRUCTION SITE MANAGER LIGHT, INSTRUCTED PT TO CALL IF NEEDING ANY ASSISTANCE. ON DROPLET/CONTACT PRECAUTIONS FOR COVID R/O. CALL LIGHT WITHIN REACH. BED IN LOWEST POSITION.
[2020-08-02 23:40] VITALS: BP 107/69
--- NOTE | 2020-08-03 03:15 | NUR ---
PT SEEN WITH O2 SATURATION AT 81% ON 3L NC. INCREASED PTS O2 TO 5L NC, SATURATION INCREASED TO 98%. PT LAYING ON L SIDE AT THIS TIME. NO TEMPERATURE AT THIS TIME. PROVIDED PT WITH WARM BLANKET. NO SIGNS OF ACUTE DISTRESS NOTED. CALL LIGHT NEAR PT.
[2020-08-03 05:43] VITALS: BP 105/76
--- NOTE | 2020-08-03 05:48 | NUR ---
PATIENT HAS NO SIGNS OF ACUTE DISTRESS AT THIS TIME, PATIENT ON SIMPLE MASK 5L, ALL SAFETY MEASURES WITHIN NORMAL LIMITS, WILL ENDORSE CARE TO ONCOMING NURSE.
--- NOTE | 2020-08-03 06:13 | NUR ---
PAGED DR. GOMEZ REGARDING NEW ORDERS. WAITING FOR CALL BACK
--- NOTE | 2020-08-03 06:38 | NUR ---
I HAVE REVIEWED THE DATA COLLECTION BY RN (NAME): RAYMOND GORE ENTERED ON (DATE/TIME):08/02/20 [id number] I CONCUR WITH THE DATA AND ANY EXCEPTIONS OR COMMENTS ARE LISTED BELOW: ALL NOTES, ASSESSMENTS AND PATIENT CARE PROVIDED THROUGHOUT THE SHIFT.
--- NOTE | 2020-08-03 07:15 | NUR ---
RECEIVED BEDSIDE REPORT FROM NIGHT RN. PT IN BED RESTING. PT AOX4. PT ON SIMPLE MASK 5L. TELE#48. PT ON DROPLET PRECAUTIONS. IV IN L HAND 22G. PT DENIES PAIN AT THIS TIME. CALL LIGHT WITHIN REACH. BED LOCKED IN LOWEST POSITION. BED RAILS UPX2. WILL CONTINUE TO MONITOR.
[2020-08-03 08:30] VITALS: BP 113/40
[2020-08-03 09:11] LABS: BASOPHIL % 0.3 % (0.2-1.3); PLATELET COUNT 277 x10^3mcL (179-408); RED CELL DISTRIBUTION WIDTH 13.6 % (12.3-17.7)
[2020-08-03 09:22] LABS: BILIRUBIN DIRECT 0.19 mg/dL (0.0-0.2); BILIRUBIN TOTAL 0.37 mg/dL (0.20-1.00); CALCIUM 8.8 mg/dL (8.5-10.1); CARBON DIOXIDE 31.8 mmol/L (21-32); CREATININE SERUM 1.3 mg/dL (0.6-1.0); MAGNESIUM 2.2 mg/dL (1.8-2.4); POTASSIUM SERUM 4.1 mmol/L (3.5-5.1); TOTAL PROTEIN, SERUM 7.5 g/dL (6.4-8.2)
--- NOTE | 2020-08-03 09:30 | NUR ---
PT IN BED RESTING. PT DENIES SOB AND CHEST PRESSURE. PT FAMILY UPDATED ON PT CARE AND CONDITION.
[2020-08-03 09:42] LABS: ALBUMIN 2.9 g/dL (3.4-5.0)
[2020-08-03 12:15] VITALS: BP 126/64
--- NOTE | 2020-08-03 12:35 | NUR ---
PT FAMILY (SON) UPDATED AGAIN. INFORMED HIM OF HER BEING ON A SIMPLE MASK AND SHE DOESNT WANT TO TALK ON THE PHONE.
[2020-08-03 17:00] VITALS: BP 101/51
--- NOTE | 2020-08-03 17:53 | NUR ---
PT CO SOB. PT HAS PRODUCTIVE COUGH. PT O2 SAT AT 96%. PT REQUEST FOR INHALER. RT CALLED. PT NOT DUE FOR INHALER YET. RT STATED THEY WILL ADMINISTER MED IN AN HOUR. PT PLASMA CONSENT FORUM SIGNED AND IN CHART. WILL CONTINUE TO MONITOR.
--- NOTE | 2020-08-03 19:56 | NUR ---
RECEIVED PT FROM DAY SHIFT NURSE. PT AWAKE IN BED. A/OX4. TELEMETRY #48 W/ SR. BUE +2, BLE +1. EDEMA BLE 2+. NO C/O OF CARIAS, CHEST PAIN OR SOB. LUNG SOUNDS DIMINISHED/WHEEZING. O2 SAT OF 96% ON 5L SIMPLE MASK. RR EVEN AND SLIGHTLY LABORED. VOIDS FREELY. GENERALIZED WEAKNESS. SKIN DRY AND INTACT. LEFT HAND 22G ON SALINE LOCK. CALL LIGHT W/IN REACH. BED LOCKED AND IN LOWEST POSITION. INFORMED PT TO USE CALL LIGHT NEEDED.
[2020-08-03 21:14] VITALS: BP 105/69
--- NOTE | 2020-08-04 00:15 | NUR ---
WV IS AWAKE IN BED AT THIS MOMENT. NO C/O OF CHEST PAIN OR CARIAS. RR EVEN AND SLIGHTLY LABORED. O2 SAT AT 98% ON 5L SIMPLE MASK. PT C/O SOB, REQUESTING RT FOR TREATMENT AND RT WAS NOTIFIED. PT LEFT HAND IV BECAME INFILTRATED, INITIATED NEW IV, LOCATED ON RFA, SALINE LOCKED. BED LOCKED AND IN LOWEST POSITION. CALL LIGHT W/IN REACH, INSTRUCTED PT TO USE CALL LIGHT NEEDED.
--- NOTE | 2020-08-04 03:10 | NUR ---
PT COMPLAINING OF ANXIETY AT THIS TIME AND REQUESTING MEDICATION. PAGED MD REQUESTING MEDICATION ORDER. WAITING FOR MD RESPONSE.
[2020-08-04 05:20] VITALS: BP 138/76
--- NOTE | 2020-08-04 06:00 | NUR ---
SPOKE W/ MD, INFORMED MD ABOUT PT'S ANXIETY AND REQUESTING MEDICATION. AWAITING FOR PHARMACY TO VERIFY AT THIS TIME.
--- NOTE | 2020-08-04 06:51 | NUR ---
PT IS RESTING IN BED AT THIS TIME. RR EVEN AND UNLABORED. NO C/O OF CHEST PAIN, CARIAS, OR SOB. O2 SAT OF 98% ON 5L SIMPLE MASK. CALL LIGHT W/IN REACH. BED LOCKED AND IN LOWEST POSITION. PT NEEDS WERE MET THROUGHOUT SHIFT. WILL ENDORSE CARE TO ONCOMING NURSE.
--- NOTE | 2020-08-04 07:00 | NUR ---
I HAVE REVIEWED THE DATA COLLECTION BY RN (NAME): LEONORA BECERRIL ENTERED ON (DATE/TIME): 08/03/20 [id number] I CONCUR WITH THE DATA AND ANY EXCEPTIONS OR COMMENTS ARE LISTED BELOW: ALL NOTES, ASSESSMENT AND PATIENT CARE PROVIDED THROUGHOUT THE SHIFT.
--- NOTE | 2020-08-04 08:16 | NUR ---
RECEIVED PT FROM NIGHT NURSE. AAOX4. RESTING SIDE LYING IN BED. AAOX4. CO 9/10 BACK PAIN, WILL MEDICATE PRN. SAO2 100% ON 5L O2 VIA SIMPLE MASK. NO ACUTE DISTRESS NOTED. WILL CONTINUE TO MONITOR.
[2020-08-04 08:18] LABS: BILIRUBIN DIRECT 0.16 mg/dL (0.0-0.2); BILIRUBIN TOTAL 0.32 mg/dL (0.20-1.00); TOTAL PROTEIN, SERUM 7.1 g/dL (6.4-8.2)
[2020-08-04 08:47] LABS: ALBUMIN 2.8 g/dL (3.4-5.0)
[2020-08-04 08:49] VITALS: BP 122/71
[2020-08-04 12:06] VITALS: BP 141/89
--- NOTE | 2020-08-04 16:31 | NUR ---
BEGAN PREP FOR CONV PLASMA INFUSION. PT WAS FOUND FEBRILE WITH TEMP 101.3. GAVE TYLENOL. WILL REASSESS FOR POSSIBLE ADMINISTRATION OF BLOOD PRODUCTS.
[2020-08-04 16:33] VITALS: BP 145/88
--- NOTE | 2020-08-04 19:35 | NUR ---
PT RECEIVED CONV PLASMA INFUSION. PRE VS: T 97.9 HR 99 RR 20 BP 130/89 SAO2 97% 15 VS: T 97.9 HR 98 RR 16 BP 150/84 SAO2 97% POST VS: T 98.0 HR 91 RR 19 BP 151/86 SAO2 97% PT TOLERATED WELL WITH NO SX OF ACUTE TRANSFUSION REACTION.
--- NOTE | 2020-08-04 19:35 | NUR ---
PT BECAME FEBRILE WITH TEMP 101.3 @1630. GIVEN TYLENOL AND WAS AFEBRILE. NO OTHER ACUTE CHANGES. TITRATED O2 TO 4L VIA SIMPLE MASK. NO ACUTE CHANGES OR DISTRESS. ENDORSED TO NIGHT NURSE.
--- NOTE | 2020-08-04 19:52 | NUR ---
SON WAS UPDATED VIA TELEPHONE
[2020-08-04 20:14] VITALS: BP 151/86
--- NOTE | 2020-08-04 21:47 | NUR ---
PLASMA COMPLETED DAY SHIFT NURSE ADMIN REMDESIVIR. PATIENT ASLEEP 02 SATS 97 ON 5LNC. SAFETY MEASURES IN PLACE. CALL DIAZ IN REACH. WILL MONITOR
--- NOTE | 2020-08-05 05:40 | NUR ---
AAO RESPIRATIONS EVEN O2 SATS 98%. DENIES PAIN. SAFETY PRECAUTIONS FOLLOWED. CALL LIGHT IN REACH
[2020-08-05 05:45] VITALS: BP 141/77
[2020-08-05 07:58] LABS: ALKALINE PHOSPHATASE 65 U/L (46-116); ALT/SGPT 27 U/L (14-59); AST/SGOT 34 U/L (15-37); BILIRUBIN DIRECT 0.11 mg/dL (0.0-0.2); BILIRUBIN TOTAL 0.3 mg/dL (0.20-1.00); CALCIUM 8.6 mg/dL (8.5-10.1); CARBON DIOXIDE 30.9 mmol/L (21-32); CHLORIDE SERUM 100 mmol/L (98-107); CREATININE SERUM 0.8 mg/dL (0.6-1.0); GFR1 > 60 mL/min; GLUCOSE SERUM 97 mg/dL (74-106); POTASSIUM SERUM 3.1 mmol/L (3.5-5.1); SODIUM SERUM 137 mmol/L (136-145); TOTAL PROTEIN, SERUM 6.7 g/dL (6.4-8.2)
[2020-08-05 07:59] LABS: ALBUMIN 2.8 g/dL (3.4-5.0)
[2020-08-05 08:13] LABS: BASOPHIL % 0.4 % (0.2-1.3); PLATELET COUNT 298 x10^3mcL (179-408); RED CELL DISTRIBUTION WIDTH 13.7 % (12.3-17.7)
[2020-08-05 08:55] VITALS: BP 141/67
--- NOTE | 2020-08-05 09:34 | NUR ---
0730: rECEIVED PT. IN BED ASLEEP, AWAKE TO VERBAL STIMULI, PT. DENIED SOB AT THIS TIME RESP EVEN AND UNLABORED. 02 5L VIA SIMPLE MASK. ABLE TO TURN AND REPOSITION SELF. CALL LIGHT IN REACH ENC. TO CALL FOR ASSIST NEEDED.
[2020-08-05 12:10] VITALS: BP 109/54
--- NOTE | 2020-08-05 15:38 | NUR ---
Initial Nutrition Assessment: 207B OSVAL[employer] NAILS 54F Nursing trigger: N/V/D > 3 days, Unintentional weight loss > 10 lbs, admitted with risk diagnosis, poor PO intake > 3 days Consult: morbid Obesity Dx: COVID 19+, PNA, Hypoxia, COPD PMHx: COPD, HTN, Anxiety, Depression, GERD, Fibromyalgia, VSD s/p repair at age 9, morbid obesity, obesity hyperventilation syndrome PSHx: VSD repair at age of 9 Labs: (08/05) K 3.1H, BUN 20H, albumin 2.8L, (08/02) CRP 25.7H, Trig 209H, LDL 113H, HDL 22L Meds: Decadron, Lasix, Zinc sulfate, Lexapro, Vitamin D, Vitamin C, Colace, Ativan, Nicoderm, Lovenox, Lyons, Synthroid, Neurontin, Mucinex, Lipitor, Zithromax, Tylenol, Remdesivir Diet: NA2G PO intake since admission: (08/04) B: 100% Ht: 154.94cm/61in Wt: 120.457kg/265lbs BMI: 50.2kg/m2 Bed scale: not able to obtain d/t isolation IBW: 47.73kg/105lbs %IBW: 252.4% Adjusted BW: 66kg UBW: not able to obtain d/t isolation Age: 54 Food Allergies: none noted Edema: Trace edema Last BM: 08/03 Skin: skin intact Kristopher: 18 GI: [+] abd distention noted COVID positive per Progress note (2/) Per H and P (2/) Patient is a 54-year-old female with a past medical history significant for obesity hypoventilation syndrome, COPD, chronic smoking, hypertension, fibromyalagia, anxiety and depression who presents to the ED with 3-week history of shortness of breath. She states that her shortness of breath has been progressing, accompanied with fevers, bodyaches, loss of appetite, diarrhea and a cough productive of white sputum. The patient states that she tested before for covid although she doesnt remeber exactly when, and she was told she was negative. She denies any known covid contacts, recent travel or hospital admissions in the last few months. She will be admitted for further management. Pt was admitted with acute respiratory failure and sepsis, obesity hyperventilation syndrome, vasomotor nephropathy, chronic smoker, hypothyroidism (stable), hyperlipidemia, Hypertension, hypertension, Morbid obesity, fibromyalgia, depression RD Note (08/05/2020) RD tried contacting pt x 3, but pt did not respond to bedside phone. Per pt's SYSTEMS ANALYSIS MANAGER, pt was sleeping this morning, and she falls in and out of sleep. SYSTEMS ANALYSIS MANAGER reported that pt was eating well with current diet. Per pt's RN, pt was tolerating diet with no GI issues or chewing/swallowing difficulty Problem with: N/V/D/C: none per RN Problems with: Chewing: Swallowing: none per RN Current appetite: good per SYSTEMS ANALYSIS MANAGER Recent wt change: not able to obtain %wt change: not able to obtain Vitamin/Supplement use: none noted in H and P Special diet at home: Regular diet Physical activity: not able to obtain Nutrition education given (specify specific nutrition education and handout given): RD could not get ahold of pt. Verbal education not able to be provided at this time. Written education "Heart-Healthy Nutrition Therapy" and "1800-calorie 5-day Menus" were provided via pt's RN. follow up with verbal education when appropriate. Food-drug interactions? Education given? n/a Estimated Nutritional Needs Based on adjusted body weight (66kg) Energy: 2526-2841 kcal/day (25-30 kcal/kg for COVID and weight reduction) Protein: 99-132 g/day (1.5-2 g/kg for COVID and BMI=50.2kg/m2) Fluid: 6765-1920 mL/day (1 mL/kcal) Nutrition Diagnosis: 1. Increased energy and protein needs r/t viral infection a/e/b pt is COVID positive. 2. Morbid Obesity r/t pathophysiological cause a/e/b pt BMI = 50.2kg/m2. Intervention 1. Recommend Cardiac diet 2. Follow up with diet education when appropriate. Recommendation provided to NP. Padilla. Monitor/Evaluate Goal: PO intake at least 75% of estimated needs Monitor: PO intake, Labs, GI function F/U in 3-5 days as moderate risk 08/08-
--- NOTE | 2020-08-05 15:38 | NUR ---
1. Recommend Cardiac diet 2. Follow up with diet education when appropriate. Recommendation provided to NP. Padilla.
[2020-08-05 16:15] VITALS: BP 104/71
[2020-08-05 19:25] VITALS: BP 104/59
--- NOTE | 2020-08-05 19:34 | NUR ---
PT. RECEIVED TO UNIT AT 1925 ORIENTED TO ENVIRONMENT, PLACED ON TELE AND V/S OBTAINED. PT. STABLE HANDOFF REPORT GIVEN TO ANSON BLANCO.
--- NOTE | 2020-08-05 19:52 | NUR ---
AAO*4,97% 5L SIMPLE MASK. LUNGS COARSE. SKIN INTACT. NO ACUTE DISTESS NOTED. SAFETY MAINTAINED. CALL DIAZ IN REACH
[2020-08-05 20:45] VITALS: BP 137/68
--- NOTE | 2020-08-06 05:08 | NUR ---
RESPIRATIONS UNLABORED 96% 5L. NAD NOTED. TOLERATED MEDS WELL. SAFETY MAINTAINED. CALL LIGHT IN REACH
[2020-08-06 06:04] VITALS: BP 122/64
--- NOTE | 2020-08-06 07:27 | NUR ---
PT. RECEIVED IN BED, AWAKE AND ALERT, NO C/O NOTED AT THIS TIME. SKIN W/D TO TOUCH, SKIN INTACT, PT. ABLE TO TURN AND REPOSITION. CALL LIGHT IN REACH, ENC TO CALL FOR ASSIST NEEDED. CONDITION STABLE.
[2020-08-06 08:13] LABS: ALKALINE PHOSPHATASE 68 U/L (46-116); ALT/SGPT 24 U/L (14-59); AST/SGOT 31 U/L (15-37); BILIRUBIN DIRECT 0.15 mg/dL (0.0-0.2); BILIRUBIN TOTAL 0.31 mg/dL (0.20-1.00); CALCIUM 9.4 mg/dL (8.5-10.1); CARBON DIOXIDE 35.4 mmol/L (21-32); CHLORIDE SERUM 101 mmol/L (98-107); CREATININE SERUM 0.7 mg/dL (0.6-1.0); GFR1 > 60 mL/min; GLUCOSE SERUM 111 mg/dL (74-106); SODIUM SERUM 141 mmol/L (136-145); TOTAL PROTEIN, SERUM 6.8 g/dL (6.4-8.2)
[2020-08-06 08:26] LABS: ALBUMIN 2.8 g/dL (3.4-5.0)
[2020-08-06 08:40] LABS: BASOPHIL % 0.3 % (0.2-1.3); PLATELET COUNT 327 x10^3mcL (179-408); RED CELL DISTRIBUTION WIDTH 13.7 % (12.3-17.7)
[2020-08-06 10:23] VITALS: BP 137/73
[2020-08-06 12:14] VITALS: BP 128/68
[2020-08-06 14:14] VITALS: BP 128/68
[2020-08-06 16:49] VITALS: BP 140/79
[2020-08-06 21:28] VITALS: BP 145/93
--- NOTE | 2020-08-06 22:12 | NUR ---
PT ALERT AND ORIENTED X4, HAS C/O PAIN MEDICATED PER MD ORDERS TOLERATES MEDS WELL, NO C/O SOB NOTED, CONTINUE NSR ON TELE, +2 EDEMA NOTED BLE, LUNG SOUNDS DIMINISHED, BOWEL SOUNDS ACTIVE, CONTINENT OF BOWEL AND BLADDER, GENERALIZED WEAKNESS NOTED, SKIN WARM DRY AND INTACT, NO ISSUES NOTED, IV INTACT AND PATENT, SAFETY MAINTAINED, WILL CONTINUE TO OBSERVE.
--- NOTE | 2020-08-07 02:26 | NUR ---
PT RESTING WITH EYES CLOSED, NO C/O PAIN OR DISCOMFORT, REMAINS STABLE, SAFETY MAINTAINED, WILL CONTINUE TO OBSERVE.
[2020-08-07 04:58] VITALS: BP 152/92
--- NOTE | 2020-08-07 05:02 | NUR ---
PT HAS A UNEVENTFUL SHIFT, NO C/O PAIN, NO SIGNS OF DISTRESS NOTED, SAFETY MAINTAINED, WILL CONTINUE TO OBSERVE.
--- NOTE | 2020-08-07 07:01 | NUR ---
RECEIVED PT FROM ELECTRONICS MAINTENANCE TECHNICIAN RN. AOX4 ABLE TO MAKE NEEDS KNOWN, DENIES CARIAS/DIZZINESS. TELE 48 SR. EDEMA TO BUE, BLE +2, CAP REFILL <3 SEC, SKIN WARM/DRY TO TOUCH. BOWEL SOUNDS ACTIVE, DENIES N/V/D, ABDOMEN SOFT/ROUND. GENERALIZED WEAKNESS, PT IS AMBULATORY. NO SKIN ISSUES. IV TO RAC IN PLACE, CDI. CALL LIGHT IN REACH, WILL CONTINUE TO MONITOR.
[2020-08-07 07:27] LABS: BASOPHIL % 0.4 % (0.2-1.3); PLATELET COUNT 388 x10^3mcL (179-408)
[2020-08-07 07:47] LABS: CALCIUM 9.1 mg/dL (8.5-10.1); CHLORIDE SERUM 102 mmol/L (98-107); CREATININE SERUM 0.8 mg/dL (0.6-1.0); GFR1 > 60 mL/min; GLUCOSE SERUM 108 mg/dL (74-106); POTASSIUM SERUM 3.4 mmol/L (3.5-5.1); SODIUM SERUM 141 mmol/L (136-145)
[2020-08-07 08:09] LABS: BILIRUBIN DIRECT 0.13 mg/dL (0.0-0.2); BILIRUBIN TOTAL 0.4 mg/dL (0.20-1.00); TOTAL PROTEIN, SERUM 7.2 g/dL (6.4-8.2)
[2020-08-07 08:10] LABS: ALBUMIN 3.1 g/dL (3.4-5.0)
[2020-08-07 08:18] LABS: rbc morphology (normal/abnorm) NORMAL (NORMAL)
[2020-08-07 08:55] VITALS: BP 128/78
[2020-08-07] MEDS ORDERED: PROAIR HFA8.5 GM INH (10:20)
[2020-08-07] MEDS ORDERED: DECADRON4 MG PO (10:20)
[2020-08-07] MEDS ORDERED: VITAMIN D3125 MC2 PO (10:25)
[2020-08-07] MEDS ORDERED: VITAMIN C500 M6 PO (10:25)
[2020-08-07 11:46] VITALS: BP 143/85
[2020-08-07 16:59] VITALS: BP 123/72
--- NOTE | 2020-08-07 18:42 | NUR ---
PT LAYING IN BED, DENIES ANY ISSUES, O2 AT 2.5L NC, 02 SAT 96%.
[2020-08-07 20:40] VITALS: BP 146/71
--- NOTE | 2020-08-07 21:29 | NUR ---
PT ALERT, TOLERATES MEDS WELL, HAS C/O PAIN, MEDICATED PER MD ORDERS, LUNGS SOUNDS CLEAR, BOWEL SOUNDS ACTIVE IN ALL 4 QUADS, GENERALIZED WEAKNESS NOTED, CONTINUE TO HAVE NONPRODUCTIVE COUGH, CONTINENT OF BOWEL AND BLADDER, CONTINUE TO HAVE 2+ EDEMA IN BLE, RESTING IN BED, SAFETY MAINTAINED, WILL CONTINUE TO OBSERVE.
--- NOTE | 2020-08-08 00:44 | NUR ---
PT RESTING, NO C/O PAIN, NO SIGNS OF DISTRESS NOTED, REMAINS IN A STABLE CONDITION, SAFETY MANTAINED, WILL CONTINUE TO OBSERVE.
--- NOTE | 2020-08-08 05:29 | NUR ---
PT HAD A UNEVENTFUL SHIFT, REMAINS STABLE, NO C/O PAIN NOTED, SAFETY MAINTAINED, WILL CONTINUE TO OBSERVE.
[2020-08-08 05:46] VITALS: BP 151/87
[2020-08-08 07:25] LABS: BASOPHIL % 0.4 % (0.2-1.3); PLATELET COUNT 399 x10^3mcL (179-408); RED CELL DISTRIBUTION WIDTH 13.2 % (12.3-17.7)
--- NOTE | 2020-08-08 07:30 | NUR ---
PATIENT ALERT AND ORIENTED X 4. CALM AND COOPERATIVE. REQUESTED HER ANXIETY AND PAIN MED UPON ASSESSMENT. NO RESPIRATORY DISTRESS. NO SOB. FOLLOWS COMMANDS. ABLE TO AMBULATE INDEPENDENTLY.
[2020-08-08 08:04] LABS: CALCIUM 9.6 mg/dL (8.5-10.1); CARBON DIOXIDE 36.5 mmol/L (21-32); CHLORIDE SERUM 98 mmol/L (98-107); CREATININE SERUM 0.9 mg/dL (0.6-1.0); GFR1 > 60 mL/min; GLUCOSE SERUM 103 mg/dL (74-106); MAGNESIUM 1.8 mg/dL (1.8-2.4); POTASSIUM SERUM 3.3 mmol/L (3.5-5.1); SODIUM SERUM 139 mmol/L (136-145); rbc morphology (normal/abnorm) NORMAL (NORMAL)
[2020-08-08 10:04] VITALS: BP 126/68
[2020-08-08] MEDS ORDERED: PERCOCET1 TAB PO (11:48)
[2020-08-08 13:06] VITALS: BP 125/80
[2020-08-08] MEDS ORDERED: ULTRAM50 MG PO (15:20)
[2020-08-08] MEDS ORDERED: XAN1 PO (15:20)
--- NOTE | 2020-08-08 15:42 | NUR ---
S/W DR. JIMÉNEZ WHO SAYS PATIENT CAN BE DISCHARGED HOME IF STABLE 02SAT OFF OXYGEN. HAVE PATIENT AMBULATE AND ASSESS O2 SAT. ASSESSED PATIENT 02 SAT AT BEDSIDE ON R/A IS 95%. 90-91% WHEN AMBULATING IN ROOM ON ROOM AIR. 89% FOR A SECOND WHILE COUGHING. PATIENT STATES FEELING FINE AND WANTS TO GO HOME.
--- NOTE | 2020-08-08 16:02 | NUR ---
S/W DR. JIMÉNEZ AGAIN TO CLARIFY ORDER FOR DISCHARGE. REQUIREMENTS FOR DISCHARGE WERE CHANGED TO A 02 SAT OF 93% OR HIGHER AT REST AND DURING AMBULATION REASSESSED PATIENT WITH 02 SAT WHILE AT REST 95% AND AMBULATION DROPPED TO 86% ON ROOM AIR. PATIENT DOES NOT MEET DISCHARGE CRITERIA PER MD ORDER. WILL CONTINUE TO MONITOR AND REASSESS.
[2020-08-08 16:52] VITALS: BP 140/78
--- NOTE | 2020-08-08 18:55 | NUR ---
PATIENT IS CALM AND COOPERATIVE. ANXIOUS TO GO HOME BUT UNDERSTANDS SEAT [employer] CUTTER RODRIGUEZ ORDERS TO DISCHARGE ONLY IF O2 SAT IS 93% OR GREATER WHEN AT REST AT AMBULATING. STILL DESAT TO 86% UPON AMBULATION ON ROOM AIR. STABLE O2 SAT 95% AT REST ROOM AIR.
[2020-08-08 20:53] VITALS: BP 140/84
--- NOTE | 2020-08-08 23:01 | NUR ---
PT ALERT AND ORIENTED X4 ABLE TO MAKE NEEDS KNOWN, HAS C/O PAIN NOTED MEDICATED PER MD ORDERS, 2+ EDEMA NOTED TO BLE, LUNG SOUNDS DIMINISHED, BOWEL SOUNDS ACTIVE IN ALL 4 QUADS, CONTINUE TO HAVE GENERALIZED WEAKNESS NOTED, SKIN WARM DRY AND INTACT, IV TO LFA REMOVED PT STATES IT TOO PAINFUL, AND THAT SHE WANTS A PICC PLACED, SAFETY MAINTAINED, WILL CONTINUE TO OBSERVE.
--- NOTE | 2020-08-09 01:42 | NUR ---
PT RESTING WITH EYES CLOSED, NO C/O PAIN, REMAINS STABLE, SAFETY MAINTAINED, WILL CONTINUE TO OBSERVE.
--- NOTE | 2020-08-09 05:19 | NUR ---
PT HAD A UNEVENTFUL SHIFT, REMAINS STABLE, NO C/O PAIN, SAFETY MAINTAINED, WILL CONTINUE TO OBSERVE.
[2020-08-09 05:29] VITALS: BP 101/63
--- NOTE | 2020-08-09 08:28 | NUR ---
PT AWAKE, ALERT,APPEARS COMFORTABLE. LUNGS DIMINIHED. NO SOB OR DISPNEA NOTED. PT IS ON O2 AT 2.5L NC, SATS 94%. ABD OBESE WITH ACTIVE BS. PT DENIES ANY NEEDS AT THIS TIME. WILL CONTINUE TO MONITOR. CALL LIGHT IN REACH.
[2020-08-09 09:05] VITALS: BP 137/80
[2020-08-09 12:30] VITALS: BP 141/85
[2020-08-09 14:04] VITALS: BP 141/85
--- NOTE | 2020-08-09 15:36 | NUR ---
DISCHARGE INSTRUCTIONS REVIEWED WITH PT. REVIEWED SAFETY PRECAUTIONS FOR INFECTION CONTROL WITH PT. PT VERBALIZED UNDERSTANDING. SPOKE TO PHARMACIST AT [facility] TO COMFIRM ELECTRONIC NARCOTIC PRESCRIPTION POR PT. PT AWARE TO JEWELRY [employer]ATER MEDICATUIONS FROM HER HOME PHARMACY. PT DENIES ANY PAIN OR DISCOMFORT AT THIS TIME.
== END 2020-08-09 15:09 | disposition home or self-care (01) | DRG 720 ==
LOC: ED 17:01 → DU 19:54
PROVIDERS: Emergency Medicine; Family Medicine; ADMIT Internal Medicine; ATTEND Internal Medicine
PROC: XW033E5 Introduction of Remdesivir Anti-infective into Peripheral Vein, Percutaneous Approach, New Technology Group 5 (ICD-10-PCS; principal; 2020-08-02)
PROC: XW13325 Transfusion of Convalescent Plasma (Nonautologous) into Peripheral Vein, Percutaneous Approach, New Technology Group 5 (ICD-10-PCS; 2020-08-04)
DX: A41.89 Other specified sepsis (principal); U07.1 COVID-19; J96.21 Acute and chronic respiratory failure with hypoxia; J12.82 Pneumonia due to coronavirus disease 2019; F41.9 Anxiety disorder, unspecified; E44.0 Moderate protein-calorie malnutrition; I50.9 Heart failure, unspecified; J96.22 Acute and chronic respiratory failure with hypercapnia; J44.0 Chronic obstructive pulmonary disease with (acute) lower respiratory infection; K21.9 Gastro-esophageal reflux disease without esophagitis; M79.7 Fibromyalgia; I25.2 Old myocardial infarction; Z90.49 Acquired absence of other specified parts of digestive tract; E66.2 Morbid (severe) obesity with alveolar hypoventilation; F32.9 Major depressive disorder, single episode, unspecified; F17.210 Nicotine dependence, cigarettes, uncomplicated; Z83.3 Family history of diabetes mellitus; Z79.899 Other long term (current) drug therapy; N17.0 Acute kidney failure with tubular necrosis; E03.9 Hypothyroidism, unspecified; E78.5 Hyperlipidemia, unspecified; Z68.42 Body mass index [BMI] 45.0-49.9, adult; R74.01 Elevation of levels of liver transaminase levels; I13.0 Hypertensive heart and chronic kidney disease with heart failure and stage 1 through stage 4 chronic kidney disease, or unspecified chronic kidney disease; N18.9 Chronic kidney disease, unspecified
CPT/HCPCS: 83880; 85378; 87804; G0378; J0456; J1100; J1650; J1940; J3480; J7030; J7040; J7050; U0003